=== PATIENT | female | born 1995 | race Caucasian/White ===

== ENCOUNTER 2022-01-12 13:52 | Outpatient (CLI) | payer OTHER ==
[~2022-01-12] VITALS: Ht 167.6 cm; Wt 62.1 kg
== END 2022-01-12 17:23 | disposition home or self-care (01) ==
LOC: GENOP 13:52
PROVIDERS: Obstetrics & Gynecology
DX: O99.891 Other specified diseases and conditions complicating pregnancy (principal); M54.50 Low back pain, unspecified; R10.9 Unspecified abdominal pain
CPT/HCPCS: 80307; 81001; 87077; 87086; 87186; 96360; 96366; 96367; J0696

== ENCOUNTER 2022-03-10 20:40 | Outpatient (CLI) | payer OTHER | END 2022-03-10 22:32 | disposition home or self-care (01) | LOC: GENOP 20:40 | PROVIDERS: Obstetrics & Gynecology | DX: O99.891 Other specified diseases and conditions complicating pregnancy (principal); N89.8 Other specified noninflammatory disorders of vagina; O99.333 Smoking (tobacco) complicating pregnancy, third trimester; F17.210 Nicotine dependence, cigarettes, uncomplicated; Z3A.38 38 weeks gestation of pregnancy | CPT/HCPCS: 80307; 81001; 84112; G0463 ==

== ENCOUNTER 2022-03-13 21:28 | Outpatient (CLI) | payer OTHER ==
[2022-03-14] MEDS ORDERED: IBUPROFEN600 MG PO (04:00)
[2022-03-14] MEDS ORDERED: COLACE100 MG PO (04:00)
== END 2022-03-13 23:44 | disposition home or self-care (01) ==
LOC: GENOP 21:28
DX: O47.1 False labor at or after 37 completed weeks of gestation (principal); O99.891 Other specified diseases and conditions complicating pregnancy; N89.8 Other specified noninflammatory disorders of vagina; O99.333 Smoking (tobacco) complicating pregnancy, third trimester; F17.210 Nicotine dependence, cigarettes, uncomplicated; Z3A.38 38 weeks gestation of pregnancy
CPT/HCPCS: 81001; 84112; 87086; G0463

== ENCOUNTER 2022-03-14 02:04 | Inpatient (IN) | payer OTHER ==
[~2022-03-14] VITALS: Ht 167.6 cm; Wt 60.8 kg
[2022-03-14 02:36] LABS: HEMOGLOBIN 9.5 gm/dl (12.3-15.3); RED BLOOD COUNT 2.95 M/UL (4.00-5.10); WHITE BLOOD COUNT 22.7 K/UL (4.5-11.0)
[2022-03-14] MEDS ORDERED: COLACE100 MG PO (04:00)
[2022-03-14] MEDS ORDERED: IBUPROFEN600 MG PO (04:00)
[2022-03-15 04:43] LABS: HEMOGLOBIN 7.1 gm/dl (12.3-15.3)
[2022-03-15] MEDS ORDERED: IRON325 M1 PO (09:38)
[2022-03-15] MEDS ORDERED: IBUPROFEN600 MG PO (09:38)
[2022-03-15] MEDS ORDERED: COLACE 100MG C100 MG PO (09:38)
== END 2022-03-15 18:48 | disposition home or self-care (01) | DRG 807 ==
LOC: GENOP 02:04 → OB 02:30
PROVIDERS: ADMIT Obstetrics & Gynecology
PROC: 10E0XZZ Delivery of Products of Conception, External Approach (ICD-10-PCS; principal; 2022-03-14)
PROC: 4A1HXCZ Monitoring of Products of Conception, Cardiac Rate, External Approach (ICD-10-PCS; 2022-03-14)
PROC: 3E0234Z Introduction of Serum, Toxoid and Vaccine into Muscle, Percutaneous Approach (ICD-10-PCS; 2022-03-14)
DX: O42.02 Full-term premature rupture of membranes, onset of labor within 24 hours of rupture (principal); Z37.0 Single live birth; O77.0 Labor and delivery complicated by meconium in amniotic fluid; O99.334 Smoking (tobacco) complicating childbirth; Z3A.39 39 weeks gestation of pregnancy; F17.210 Nicotine dependence, cigarettes, uncomplicated; Z83.3 Family history of diabetes mellitus; Z82.5 Family history of asthma and other chronic lower respiratory diseases; Z80.41 Family history of malignant neoplasm of ovary; Z82.49 Family history of ischemic heart disease and other diseases of the circulatory system; Z23 Encounter for immunization
CPT/HCPCS: 36415; 85014; 85018; 85025; 90707; 90715; J2210; J2590